=== PATIENT | male | born 1965 | race Caucasian/White ===

== ENCOUNTER 2023-08-27 15:44 | Emergency (ER) | payer OTHER ==
[2023-08-27 16:04] VITALS: BP 133/79; PULSE 86; RESP 18; TEMP 97.8; BMI 29.9
== END 2023-08-27 17:12 | disposition home or self-care (01) ==
LOC: FER 15:44
DX: M25.561 Pain in right knee (principal); M25.461 Effusion, right knee; X50.1XXA Overexertion from prolonged static or awkward postures, initial encounter
CPT/HCPCS: 73562-TC-RT-FY; 99283-25

== ENCOUNTER 2023-09-03 15:22 | Emergency (ER) | payer OTHER ==
[2023-09-03 15:35] VITALS: BP 136/78; PULSE 78; RESP 18; TEMP 98.5; BMI 58.3
== END 2023-09-03 16:30 | disposition home or self-care (01) ==
LOC: FER 15:22
DX: M79.89 Other specified soft tissue disorders (principal)
CPT/HCPCS: 93971-TC; 99284-25

== ENCOUNTER 2023-09-07 13:12 | Emergency (ER) | payer OTHER ==
[2023-09-07 13:36] VITALS: BP 128/86; PULSE 57; RESP 15; TEMP 98.2; BMI 28.0
[2023-09-07 14:55] LABS: ALBUMIN 4.3 g/dl (3.4-5.0); BILIRUBIN,TOTAL 0.3 mg/dl (0.2-1); POTASSIUM 5.2 mmol/L (3.5-5.1); TOT PROT 6.9 g/dl (6.4-8.2)
[2023-09-07 15:08] LABS: HEMOGLOBIN 14.5 G/dL (11.7-16.9); MCH 27.9 pg (25.7-33.7); MCHC 32.3 g/dl (32.0-35.9); MEAN CELL VOLUME 86.3 fl (80-96); MEAN PLT VOLUME 8.8 fl (7.5-11.1); RBC 5.21 10^6/uL (4.00-5.60); RDW 15.1 % (11.9-15.9); WHITE BLOOD COUNT 6.5 10^3/uL (4.0-10.8)
[2023-09-07 15:16] LABS: PLATELET ESTIMATE ADEQUATE
[2023-09-07] MEDS ORDERED: SODIUM ZIRCONIUM CYCLOSILICATE (LOKELMA) 5 GM PACKET ONE (16:23)
[2023-09-07] MEDS: SODIUM ZIRCONIUM CYCLOSILICATE (LOKELMA) 5 GM PACKET PO ONE (16:26)
== END 2023-09-07 16:31 | disposition home or self-care (01) ==
LOC: FER 13:12
DX: M79.89 Other specified soft tissue disorders (principal)
CPT/HCPCS: 36415; 80053; 85027; 86618; 93971-TC; 99284-25